=== PATIENT | male | born 1940 | race Caucasian/White ===

== ENCOUNTER 2020-02-27 20:23 | Inpatient (IN) | payer MEDICARE, OTHER ==
[~2020-02-27] VITALS: Ht 180.3 cm; Wt 102.6 kg
[2020-02-27] MEDS ORDERED: IBUPROFEN 800 MG (MOTRIN) TAB PO ONE (20:52)
[2020-02-27] MEDS ORDERED: ALBUTEROL/IPRATROP (COMBIVENT RESPIMAT) 4 GM INHALER ONE (20:52)
[2020-02-27] MEDS ORDERED: ACETAMINOPHEN 500 MG TAB (TYLENOL) ONE (20:52)
[2020-02-27] MEDS ORDERED: ADVAIR HFA 115/21 MCG INHALER 8 GM IH ONE (20:53)
[2020-02-27] MEDS ORDERED: dexAMETHasone 6 MG TAB (DECADRON) ONE (20:53)
[2020-02-27 21:17] LABS: ABG BASE EXCESS -0.3 MMOL/L (-2.5-2.5); ABG OXYGEN SATURATION 94 % (94-100); ABG PCO2 37 MMHG (35-45); ABG PH 7.42 (7.37-7.43); ABG PO2 85 MMHG (79-93); ABG TCO2 24.2 MMOL/L (21.0-31.0)
[2020-02-27 21:20] LABS: BASOPHILS % (AUTO) 1 % (0-10); EOSINOPHILS % (AUTO) 0 % (0-10); HEMATOCRIT 37 % (40-54); HEMOGLOBIN 12.4 g/dL (13.3-17.7); LYMPHOCYTES # (AUTO) 0.9 10^3/uL (1.0-4.0); LYMPHOCYTES % (AUTO) 15 % (12-44); MEAN CORPUSCULAR HEMOGLOBIN 35 pg (25-34); MEAN CORPUSCULAR HGB CONC 33 g/dL (32-36); MEAN CORPUSCULAR VOLUME 105 fL (80-99); MEAN PLATELET VOLUME 9.8 fL (9.0-12.2); MONOCYTES # (AUTO) 0.4 10^3/uL (0.0-1.0); MONOCYTES % (AUTO) 6 % (0-12); NEUTROPHILS # (AUTO) 4.5 10^3/uL (1.8-7.8); NEUTROPHILS % (AUTO) 77 % (42-75); PLATELET COUNT 89 10^3/uL (130-400); WHITE BLOOD COUNT 5.8 10^3/uL (4.3-11.0)
[2020-02-27 21:23] LABS: ALLENS TEST YES-POS; INSPIRED O2 5L; PATIENT TEMP 102.3; VENTILATOR NO
[2020-02-27 21:27] LABS: PROTHROMBIN TIME PATIENT 13.8 SEC (12.2-14.7)
[2020-02-27 21:32] LABS: ALBUMIN 4.1 GM/DL (3.2-4.5)
[2020-02-27 21:33] LABS: CHLORIDE 102 MMOL/L (98-107); POTASSIUM 3.9 MMOL/L (3.6-5.0); SODIUM 138 MMOL/L (135-145)
[2020-02-27 21:34] LABS: BILIRUBIN,URINE NEGATIVE (NEGATIVE); CLARITY,URINE CLEAR; COLOR,URINE YELLOW; GLUCOSE, URINE (UA) NEGATIVE (NEGATIVE); KETONES,URINE NEGATIVE (NEGATIVE); LEUKOCYTE ESTERASE ,URINE TRACE (NEGATIVE); NITRITE,URINE NEGATIVE (NEGATIVE); PH,URINE 7.5 (5-9); PROTEIN,URINE TRACE (NEGATIVE)
[2020-02-27 21:35] LABS: GLUCOSE 110 MG/DL (70-105); TOTAL PROTEIN 7.1 GM/DL (6.4-8.2)
[2020-02-27 21:36] LABS: CARBON DIOXIDE 23 MMOL/L (21-32)
[2020-02-27 21:37] LABS: BILIRUBIN,TOTAL 1.4 MG/DL (0.1-1.0); ERYTHROCYTE SEDIMENTATION RATE 17 MM/HR (0-30)
[2020-02-27 21:38] LABS: ALKALINE PHOSPHATASE 68 U/L (40-136)
[2020-02-27 21:39] LABS: BACTERIA,URINE TRACE /HPF; RBC,URINE RARE /HPF; SQUAMOUS EPITHELIAL CELL,UR RARE /HPF; WBC,URINE 0-2 /HPF
[2020-02-27 21:39] LABS: CREATININE SERUM 1.13 MG/DL (0.60-1.30); GFR ESTIMATED > 60
[2020-02-27 21:40] LABS: BUN/CREATININE RATIO 13
[2020-02-27 21:42] LABS: ALANINE AMINOTRANSFERASE 18 U/L (0-55); CREATINE KINASE 68 U/L (30-200); MAGNESIUM 1.8 MG/DL (1.6-2.4)
[2020-02-27 21:51] LABS: CREATINE KINASE MB 1.2 NG/ML (<6.6)
--- NOTE | 2020-02-27 21:54 | Diagnostic Imaging Report ---
INDICATION: Dyspnea. COMPARISON: None available. TECHNIQUE: Single frontal radiograph of the chest dated February 27, 2020. FINDINGS: The cardiac silhouette is within normal limits in size. No significant pulmonary vascular congestion. Bibasilar interstitial opacities are present. The upper lungs are clear. No significant pleural effusion. No pneumothorax. No acute osseous abnormality. Calcifications within the aortic arch. IMPRESSION: Mildly low lung volumes with associated bibasilar atelectasis and/or pneumonitis. Dictated by: Dictated on workstation # [id number]
[2020-02-27] MEDS ORDERED: cefTRIAXone FOR IV USE 1,000 MG in WATER (STERILE) FOR INJECTION 10 ML IV ONE (22:00)
[2020-02-27] MEDS ORDERED: AZITHROMYCIN INJECTION 500 MG in NS (IVPB) 250 ML IV ONE (22:00)
--- NOTE | 2020-02-27 22:01 | ED Respiratory ---
General Chief Complaint: Respiratory Problems Stated Complaint: SOB Source: patient History of Present Illness Date Seen by Provider: Feb 27, 2020 Time Seen by Provider: 20:49 Initial Comments PT ARRIVES VIA POV PT HAS BEEN TRAVELING ALL OVER IN MOTOR HOME--PT IS FROM [place], HAS BEEN DOWN TO [place], [place] THIS PAST WEEK VISITING FAMILY PT STATES HE BEGAN FEELING SICK A COUPLE OF DAYS AGO HAS HAD SUBJECTIVE FEVER C/O SHORTNESS OF BREATH C/O NON-PRODUCTIVE COUGH C/O WEAKNESS NO GI SYMPTOMS HAS NOT TAKEN ANYTHING FOR SYMPTOMS PT HAS COPD BUT DOES NOT REQUIRE HOME O2, HAS NOT USED INHALERS OR NEBULIZER STATES HE HAD PNEUMONIA IN MAY AND WAS HOSPITALIZED FOR 6 DAYS IN [place]--STATES HE LOST HIS TASTE AND SMELL THEN AND IT NEVER CAME BACK. STATES HE HAS LOST 25 LBS SINCE THEN PT QUIT SMOKING 1 PPD IN 2001 PT HAS HISTORY OF ATRIAL FIBRILLATION--S/P CARDIOVERSION, AND IS ON ELIQUIS Allergies and Home Medications Allergies Coded Allergies: Penicillins (Verified Allergy, Unknown, 02/27/20) Review of Systems Review of Systems Constitutional: see HPI, fever, malaise, weakness Past Adljjhw-Ezavap-Dlmybz Hx Patient Social History Recent Foreign Travel: No Contact w/Someone Who Travel: No Physical Exam Capillary Refill : Height: '" Weight: lbs. oz. kg; BMI Method: Focused Exam Lactate Level 02/27/20 20:55: Lactic Acid Level 1.52 Lactic Acid Level Laboratory Tests Test 02/27/20 20:55 Lactic Acid Level 1.52 MMOL/L (0.50-2.00) Progress/Results/Core Measures Suspected Sepsis SIRS Temperature: Pulse: Respiratory Rate: Laboratory Tests 02/27/20 20:55: White Blood Count 5.8 Blood Pressure / Mean: 02/27/20 20:55: Lactic Acid Level 1.52 Laboratory Tests 02/27/20 20:55: Creatinine 1.13, INR Comment 1.0, Platelet Count 89L, Total Bilirubin 1.4H Results/Orders Lab Results Laboratory Tests Test 02/27/20 20:55 02/27/20 21:10 02/27/20 21:18 02/27/20 21:20 Range/Units White Blood Count 5.8 4.3-11.0 10^3/uL Red Blood Count 3.58 L 4.30-5.52 10^6/uL Hemoglobin 12.4 L 13.3-17.7 g/dL Hematocrit 37 L 40-54 % Mean Corpuscular Volume 105 H 80-99 fL Mean Corpuscular Hemoglobin 35 H 25-34 pg Mean Corpuscular Hemoglobin Concent 33 32-36 g/dL Red Cell Distribution Width 14.2 10.0-14.5 % Platelet Count 89 L 130-400 10^3/uL Mean Platelet Volume 9.8 9.0-12.2 fL Immature Granulocyte % (Auto) 1 % Neutrophils (%) (Auto) 77 H 42-75 % Lymphocytes (%) (Auto) 15 12-44 % Monocytes (%) (Auto) 6 0-12 % Eosinophils (%) (Auto) 0 0-10 % Basophils (%) (Auto) 1 0-10 % Neutrophils # (Auto) 4.5 1.8-7.8 10^3/uL Lymphocytes # (Auto) 0.9 L 1.0-4.0 10^3/uL Monocytes # (Auto) 0.4 0.0-1.0 10^3/uL Eosinophils # (Auto) 0.0 0.0-0.3 10^3/uL Basophils # (Auto) 0.0 0.0-0.1 10^3/uL Immature Granulocyte # (Auto) 0.1 0.0-0.1 10^3/uL Erythrocyte Sedimentation Rate 17 0-30 MM/HR Prothrombin Time 13.8 12.2-14.7 SEC INR Comment 1.0 0.8-1.4 Activated Partial Thromboplast Time 36 H 24-35 SEC Sodium Level 138 135-145 MMOL/L Potassium Level 3.9 3.6-5.0 MMOL/L Chloride Level 102 98-107 MMOL/L Carbon Dioxide Level 23 21-32 MMOL/L Anion Gap 13 5-14 MMOL/L Blood Urea Nitrogen 15 7-18 MG/DL Creatinine 1.13 0.60-1.30 MG/DL Estimat Glomerular Filtration Rate > 60 BUN/Creatinine Ratio 13 Glucose Level 110 H 70-105 MG/DL Lactic Acid Level 1.52 0.50-2.00 MMOL/L Calcium Level 9.0 8.5-10.1 MG/DL Corrected Calcium 8.9 8.5-10.1 MG/DL Magnesium Level 1.8 1.6-2.4 MG/DL Total Bilirubin 1.4 H 0.1-1.0 MG/DL Aspartate Amino Transf (AST/SGOT) 23 5-34 U/L Alanine Aminotransferase (ALT/SGPT) 18 0-55 U/L Alkaline Phosphatase 68 40-136 U/L Lactate Dehydrogenase 175 125-220 U/L Total Creatine Kinase 68 30-200 U/L Creatine Kinase MB 1.2 <6.6 NG/ML Myoglobin 71.4 10.0-92.0 NG/ML Troponin I < 0.028 <0.028 NG/ML C-Reactive Protein High Sensitivity 2.22 H 0.00-0.50 MG/DL B-Type Natriuretic Peptide 114.0 H <100.0 PG/ML Total Protein 7.1 6.4-8.2 GM/DL Albumin 4.1 3.2-4.5 GM/DL Procalcitonin 0.17 H <0.10 NG/ML Blood Gas Puncture Site R RAD Blood Gas Patient Temperature 102.3 Arterial Blood pH 7.42 7.37-7.43 Arterial Blood Partial Pressure CO2 37 35-45 MMHG Arterial Blood Partial Pressure O2 85 79-93 MMHG Arterial Blood HCO3 23 23-27 MMOL/L Arterial Blood Total CO2 24.2 21.0-31.0 MMOL/L Arterial Blood Oxygen Saturation 94 94-100 % Arterial Blood Base Excess -0.3 -2.5-2.5 MMOL/L Lucian Test YES-POS Blood Gas Ventilator Setting NO Blood Gas Inspired Oxygen 5L Urine Color YELLOW Urine Clarity CLEAR Urine pH 7.5 5-9 Urine Specific [place] 1.010 L 1.016-1.022 Urine Protein TRACE H NEGATIVE Urine Glucose (UA) NEGATIVE NEGATIVE Urine Ketones NEGATIVE NEGATIVE Urine Nitrite NEGATIVE NEGATIVE Urine Bilirubin NEGATIVE NEGATIVE Urine Urobilinogen 1.0 < = 1.0 MG/DL Urine Leukocyte Esterase TRACE H NEGATIVE Urine RBC (Auto) NEGATIVE NEGATIVE Urine RBC RARE /HPF Urine WBC 0-2 /HPF Urine Squamous Epithelial Cells RARE /HPF Urine Crystals NONE /LPF Urine Bacteria TRACE /HPF Urine Casts NONE /LPF Urine Mucus NEGATIVE /LPF Urine Culture Indicated CULTURE PENDING Coronavirus 2019 ([facility]) Negative Negative Micro Results Microbiology 02/27/20 Influenza Types A,B Antigen (NUVIA) - Final, Complete My Orders Orders - SARAHLOLY K DO Ibuprofen Tablet (Motrin Tablet) (02/27/20 20:52) Acetaminophen Tablet (Tylenol Tablet) (02/27/20 20:52) Albuterol/Ipratropium Inhaler (Combivent (02/27/20 20:52) Dexamethasone Tablet (Decadron Tablet) (02/27/20 20:53) Fluticasone/Salmeterol 115/21 (Advair Hf (02/27/20 20:53) Dexamethasone Injection (Decadron Inje (02/27/20 20:55) Arterial Blood Gas (02/27/20 21:12) Ed Iv/Invasive Line Start (02/27/20 21:12) Ekg Tracing (02/27/20 21:12) O2 (02/27/20 21:12) Monitor-Rhythm Ecg Trace Only (02/27/20 21:12) BNP (02/27/20 21:12) Cbc With Automated Diff (02/27/20 21:12) Comprehensive Metabolic Panel (02/27/20 21:12) Creatine Kinase (02/27/20 21:12) Creatine Kinase Mb (02/27/20 21:12) Hs C Reactive Protein (02/27/20 21:12) Lactic Acid Analyzer (02/27/20 21:12) Magnesium (02/27/20 21:12) Procalcitonin (Pct) (02/27/20 21:12) Protime With Inr (02/27/20 21:12) Partial Thromboplastin Time (02/27/20 21:12) Ua Culture If Indicated (02/27/20 21:12) Blood Culture (02/27/20 21:12) Influenza A And B Antigens (02/27/20 21:12) Erythrocyte Sedimentation Rate (02/27/20 21:12) Myoglobin Serum (02/27/20 21:12) Troponin I (02/27/20 21:12) Chest 1 View, Ap/Pa Only (02/27/20 21:12) LDH (02/27/20 21:12) Covid 19 Inhouse Test (02/27/20 21:12) Urine Culture (02/27/20 21:12) Ed Iv/Invasive Line Start (02/27/20 21:12) Ed Iv/Invasive Line Start (02/27/20 21:12) Vital Signs Adult Sepsis Patie Q15M (02/27/20 21:12) O2 (02/27/20 21:12) Remove Rings In Anticipation O (02/27/20 21:12) Ceftriaxone For Iv Use (Rocephin For I (02/27/20 22:00) Azithromycin Injection (Zithromax Inject (02/27/20 22:00) Coronavirus Sars-Cov-2 So 2019 (02/27/20 22:01) Ct Angio Chest W (02/27/20 22:08) Iohexol Injection (Omnipaque 350 Mg/Ml 1 (02/27/20 23:00) Ns (Ivpb) (Sodium Chloride 0.9% Ivpb Bag (02/27/20 23:00) Vital Signs/I&O Capillary Refill : Progress Note : Progress Note PLACED IN ISOLATION ROOM PPE WORN AT ALL TIMES COVID-19 TESTING PERFORMED PT HYPOXIC ON ARRIVAL--PLACED ON O2 AT 5L/NC AND O2 SATS UP TO MID 90'S TEMP 102.4 ON ARRIVAL--GIVEN TYLENOL AND MOTRIN WITH DECREASED IN TEMP GIVEN IV FLUIDS HEART RATE DOWN AT TIME OF ADMIT WELL NO DETERIORATION IN PT'S CONDITION DURING ER STAY Diagnostic Imaging Comments CXR--per radiologist report at 2200 FINDINGS: The cardiac silhouette is within normal limits in size. No significant pulmonary vascular congestion. Bibasilar interstitial opacities are present. The upper lungs are clear. No significant pleural effusion. No pneumothorax. No acute osseous abnormality. Calcifications within the aortic arch. IMPRESSION: Mildly low lung volumes with associated bibasilar atelectasis and/or pneumonitis. Reviewed: Reviewed by Me Departure Impression Primary Impression: Person under investigation for COVID-19 Additional Impressions: Acute respiratory failure with hypoxia Pneumonia Sepsis History of atrial fibrillation Departure-Patient Inst. Referrals: NO,LOCAL PHYSICIAN (PCP/Family) Primary Care Physician LOLY SMITH DO Feb 27, 2020 22:01
[2020-02-27] MEDS ORDERED: NS 100 ML (IVPB) BAG IV ONE (23:00)
[2020-02-27] MEDS ORDERED: IOHEXOL 350 MG/ML 150 ML (OMNIPAQUE 350) VIAL IV ONE (23:00)
[2020-02-27] MEDS ORDERED: APIXABAN 5 MG (ELIQUIS) TABLET PO ONE (23:45)
--- NOTE | 2020-02-28 00:30 | NUR ---
GABRIELA SMITH V admitted to room 510-1, with an admitting diagnosis of covid pui, sepsis, acute respiratory failure, pneumonia, on 02/27/20 from ed via wc, accompanied by staff.GABRIELA SMITH V introduced to surroundings, call light, bed controls, phone, TV, temperature control, lights, meal times, smoking policy, visitor policy, side rail policy, bathrooms and showers. Patient Rights given to patient in the handbook. GABRIELA SMITH V verbalizes understanding that [facility] is not responsible for the loss or damage to any personal effects or valuables that are kept in the patients possession during their hospitalization. Patient denies any questions or concerns about his admission or illness at this time. Patient and/or family were informed about the Rapid Response Team and its purpose.
[2020-02-28] MEDS ORDERED: ACETAMINOPHEN 500 MG TAB (TYLENOL) PO PRN (00:45)
[2020-02-28] MEDS ORDERED: IBUPROFEN 800 MG (MOTRIN) TAB PO PRN (00:45)
[2020-02-28] MEDS: 1/2 NS IV SOLUTION 1,000 ML IV SCH ×3 (01:15→16:57)
--- NOTE | 2020-02-28 02:38 | NUR ---
PT REFUSED FLU VAC STATED HE TOOK IT AROUND 02/02/20
[2020-02-28] MEDS ORDERED: OMEP20CA18 PO (03:14)
[2020-02-28] MEDS ORDERED: potassium (03:14)
[2020-02-28] MEDS ORDERED: APIX5TAB PO (03:14)
[2020-02-28] MEDS ORDERED: ROSU20TA32 PO (03:14)
[2020-02-28] MEDS ORDERED: FURO40TA4 PO (03:14)
[2020-02-28] MEDS ORDERED: FERROUS SULFATE (03:14)
[2020-02-28] MEDS ORDERED: CELE-63 PO (03:14)
[2020-02-28] MEDS ORDERED: ALLO100T PO (03:14)
[2020-02-28] MEDS ORDERED: LISI-556 PO (03:14)
[2020-02-28] MEDS ORDERED: amiodarone (03:19)
[2020-02-28] MEDS ORDERED: metoprolol (03:19)
[2020-02-28] MEDS ORDERED: FLUT1BLS3 IH (03:19)
[2020-02-28] MEDS ORDERED: SUCR1TAB PO (03:27)
[2020-02-28 04:25] LABS: BASOPHILS # (AUTO) 0.1 10^3/uL (0.0-0.1); BASOPHILS % (AUTO) 1 % (0-10); EOSINOPHILS % (AUTO) 0 % (0-10); HEMATOCRIT 35 % (40-54); HEMOGLOBIN 11.6 g/dL (13.3-17.7); LYMPHOCYTES # (AUTO) 0.7 10^3/uL (1.0-4.0); LYMPHOCYTES % (AUTO) 7 % (12-44); MEAN CORPUSCULAR HEMOGLOBIN 35 pg (25-34); MEAN CORPUSCULAR HGB CONC 34 g/dL (32-36); MEAN CORPUSCULAR VOLUME 106 fL (80-99); MONOCYTES # (AUTO) 0.1 10^3/uL (0.0-1.0); MONOCYTES % (AUTO) 1 % (0-12); NEUTROPHILS # (AUTO) 8.9 10^3/uL (1.8-7.8); NEUTROPHILS % (AUTO) 89 % (42-75); PLATELET COUNT 84 10^3/uL (130-400)
[2020-02-28 04:32] LABS: ALBUMIN 3.9 GM/DL (3.2-4.5); POTASSIUM 3.9 MMOL/L (3.6-5.0)
[2020-02-28 04:33] LABS: CALCIUM 8.6 MG/DL (8.5-10.1)
[2020-02-28 04:35] LABS: TOTAL PROTEIN 6.7 GM/DL (6.4-8.2)
[2020-02-28 04:36] LABS: BILIRUBIN,TOTAL 1.1 MG/DL (0.1-1.0)
[2020-02-28 04:38] LABS: CREATININE SERUM 1.29 MG/DL (0.60-1.30)
[2020-02-28] MEDS ORDERED: IPRATROPIUM INHALER (ATROVENT) 12.9 GM INH SCH (06:00)
--- NOTE | 2020-02-28 06:42 | Diagnostic Imaging Report ---
PROCEDURE: CT angiography of the chest with contrast. TECHNIQUE: Multiple contiguous axial images were obtained through the chest after uneventful bolus administration of intravenous contrast. 3D reconstructed CTA MIP acquisitions were also performed. Auto Exposure Controls were utilized during the CT exam to meet ALARA standards for radiation dose reduction. INDICATION: Dyspnea. COMPARISON: Chest radiograph 02/27/2020. FINDINGS: Examination is limited by respiratory motion. No large or central pulmonary emboli. Moderate atherosclerotic calcifications. Normal caliber thoracic aorta. Normal heart size. No pericardial effusion. Mediastinal lymphadenopathy including periaortic lymph nodes measuring up to 1.5 cm. Consolidation in the lung bases, right greater than left. No pleural effusion or pneumothorax. No endobronchial lesions. Superior endplate compression deformity of T12 results in approximately 10% height loss, appears chronic. No acute osseous findings. Cholelithiasis without secondary CT findings of cholecystitis. IMPRESSION: 1. No large central pulmonary emboli. 2. Bibasilar consolidation, right greater than left, suspicious for pneumonitis. 3. Mediastinal lymphadenopathy is indeterminate but may be reactive. 4. Cholelithiasis. No significant change from preliminary interpretation. Dictated by: Dictated on workstation # [id number]
[2020-02-28] MEDS ORDERED: ACETAMINOPHEN 325 MG TABLET PO PRN (07:45)
[2020-02-28] MEDS ORDERED: MELATONIN 3 MG TABLET PO PRN (07:45)
[2020-02-28] MEDS ORDERED: ANTACID SUSP 30 ML UDC (MYLANTA) PO PRN (07:45)
[2020-02-28] MEDS ORDERED: ONDANSETRON 4 MG/2 ML (SDV) Z0FRAN IV PRN (07:45)
[2020-02-28] MEDS ORDERED: ONDANSETRON 4 MG (ZOFRAN) ORAL DISSOLVE TAB PO PRN (07:45)
[2020-02-28] MEDS ORDERED: BISACODYL 10 MG SUPP (DULCOLAX) PR PRN (07:45)
[2020-02-28] MEDS ORDERED: polyethylene glycoL POWDER 17 GM (MIRALAX) PACK PO PRN (07:45)
[2020-02-28] MEDS: RT-ALBUTEROL INHALER HFA (VENTOLIN HFA) 18 GM IH SCH ×5 (08:15→22:19)
[2020-02-28] MEDS: AZITHROMYCIN 250 MG TAB (ZITHROMAX) PO SCH (08:15)
[2020-02-28] MEDS: cefTRIAXone FOR IV USE 2,000 MG in WATER (STERILE) FOR INJECTION 20 ML IV SCH (08:16)
[2020-02-28] MEDS ORDERED: POTA-51 PO (08:32)
[2020-02-28] MEDS ORDERED: MTP100TCR PO (08:32)
[2020-02-28] MEDS ORDERED: FERR325T18 PO (08:37)
[2020-02-28] MEDS ORDERED: APIXABAN 5 MG (ELIQUIS) TABLET PO SCH (09:00)
[2020-02-28] MEDS: DOCUSATE SODIUM 100 MG (COLACE) CAP PO SCH ×2 (11:04→20:40)
[2020-02-28] MEDS: SENNOSIDES 8.6 MG (SENOKOT) TAB PO SCH ×2 (11:04→20:40)
[2020-02-28] MEDS: inSUlin ASPART (NovoLOG) 1 UNIT/0.01 ML (CHARGE PER UNIT) SC SCH ×3 (12:02→20:40)
--- NOTE | 2020-02-28 14:24 | History & Physical-Hospitalist ---
History of Present Illness HPI/Chief Complaint Dilip Lyman is an 79-year-old male with past medical history of hypertension, hyperlipidemia, COPD, atrial fibrillation on Eliquis, GERD, gout, who presented with shortness of breath. He reports over the past couple days he has had trouble breathing. He also reports a cough. He reports subjective fevers. He has been weak. He denies any chest pain. He denies any abdominal pain. He denies any nausea or vomiting. He denies any diarrhea. He denies any dysuria. He has not had any known COVID exposures. He has been traveling with his in an RV and they are camped in the local area. Source: patient Exam Limitations: no limitations Date Seen 02/28/20 Time Seen by a Provider: 11:00 Attending Physician Jose Spangler MD PCP No,Local Physician Referring Physician Date of Admission Feb 27, 2020 at 22:05 Home Medications & Allergies Home Medications Reviewed patient Home Medication Reconciliation performed by pharmacy medication reconciliations customer support technician and/or nursing. Patients Allergies have been reviewed. Allergies Allergies Coded Allergies Penicillins (Verified Allergy, Unknown, 02/27/20) Past Ylpytip-Nmvcvo-Cqvsog Hx Past Med/Social Hx: Reviewed Nursing Past Med/Soc Hx Patient Social History Recent Foreign Travel: No Contact w/other who traveled: No Immunizations Up To Date Date of Influenza Vaccine: Feb 02, 2020 Family History "female trouble" 19 MOTHER (pt states his mother when he was in his teen years-pt unsure of what exactly caused this) FH: throat cancer 19 FATHER Throat Review of Systems Constitutional: fever, weakness EENTM: no symptoms reported Respiratory: cough, short of breath Cardiovascular: no symptoms reported Gastrointestinal: no symptoms reported Genitourinary: no symptoms reported Musculoskeletal: no symptoms reported Skin: no symptoms reported Psychiatric/Neurological: No Symptoms Reported Physical Exam Physical Exam Vital Signs Vital Signs - First Documented Capillary Refill : Less Than 3 Seconds Height, Weight, BMI Height: '" Weight: lbs. oz. kg; 31.53 BMI Method: General Appearance: No Apparent Distress, Obese HEENT: PERRL/EOMI, Pharynx Normal Neck: Normal Inspection, Supple Respiratory: Lungs Clear, Normal Breath Sounds, No Respiratory Distress Cardiovascular: Regular Rate, Rhythm, No Edema, No Murmur Gastrointestinal: Normal Bowel Sounds, Non Tender, Soft Extremity: Normal Inspection, Non Tender, No Pedal Edema Neurologic/Psychiatric: Alert, Oriented x3, No Motor/Sensory Deficits, Normal Mood/Affect Skin: Normal Color, Warm/Dry Results Results/Procedures Labs Laboratory Tests 02/27/20 20:55 02/28/20 03:45 Patient resulted labs reviewed. Imaging: Reviewed Imaging Report Assessment/Plan Admission Diagnosis Sepsis due to pneumonia Admission Status: Inpatient Order (span 2 midnights) Reason for Inpatient Admission: PNA requiring IV antibiotics Respiratory failure requiring supplemental oxygen Assessment and Plan Sepsis due to pneumonia Acute respiratory failure with hypoxia Person under investigation for COVID-19 COPD with acute exacerbation Chest xray with bibasilar consolidations Procalcitonin trended up Rapid COVID negative, PCR pending Started on Rocephin and Azithromycin Continue IV fluids Supplemental oxygen as needed, only 1 L at time of my exam MAT protocol Started on Decadron, transition to Prednisone Continue home inhalers Chronic atrial fibrillation Continue Eliquis and Metoprolol HTN Continue Lisinopril and Metoprolol HLD Continue statin GERD Continue PPI Gout Continue Allopurinol DVT Prophylaxis: already receiving therapeutic anticoagulation Diagnosis/Problems Diagnosis/Problems (1) Sepsis due to pneumonia Status: Acute (2) Acute respiratory failure with hypoxia Status: Acute (3) Person under investigation for COVID-19 Status: Acute (4) COPD (chronic obstructive pulmonary disease) Status: Acute Qualifiers: COPD type: COPD with acute exacerbation Qualified Codes: J44.1 - Chronic obstructive pulmonary disease with (acute) exacerbation (5) HTN (hypertension) Status: Chronic Qualifiers: Hypertension type: essential hypertension Qualified Codes: I10 - Essential (primary) hypertension (6) HLD (hyperlipidemia) Status: Chronic (7) GERD (gastroesophageal reflux disease) Status: Chronic (8) Gout Status: Chronic (9) Chronic a-fib Status: Chronic Clinical Quality Measures DVT/VTE Risk/Contraindication: Risk Factor Score Per Nursin RFS Level Per Nursing on Admit: 4+=Very High JOSE SPANGLER MD Feb 28, 2020 14:24
[2020-02-28] MEDS: ROSUVASTATIN 20 MG (CRESTOR) TABLET PO SCH (20:40)
[2020-02-28] MEDS: PANTOPRAZOLE 20 MG TABLET (PROTONIX) PO SCH (20:40)
[2020-02-28] MEDS: APIXABAN 2.5 MG (ELIQUIS) TABLET PO SCH (20:40)
[2020-02-28] MEDS ORDERED: AZITHROMYCIN 500 MG/NS 250 ML IVPB IV SCH ×2 (21:00)
[2020-02-28] MEDS ORDERED: cefTRIAXone 1,000 MG/SWFI 10 ML IV PUSH IV SCH ×2 (21:00)
[2020-02-29] MEDS: RT-ALBUTEROL INHALER HFA (VENTOLIN HFA) 18 GM IH SCH ×6 (03:38→23:21)
[2020-02-29 04:07] LABS: CHLORIDE 103 MMOL/L (98-107); POTASSIUM 3.9 MMOL/L (3.6-5.0)
[2020-02-29 04:08] LABS: SODIUM 136 MMOL/L (135-145)
[2020-02-29 04:09] LABS: CALCIUM 8.8 MG/DL (8.5-10.1); GLUCOSE 143 MG/DL (70-105)
[2020-02-29 04:11] LABS: CARBON DIOXIDE 22 MMOL/L (21-32)
[2020-02-29 04:13] LABS: CREATININE SERUM 0.91 MG/DL (0.60-1.30); GFR ESTIMATED > 60
[2020-02-29 04:14] LABS: BUN/CREATININE RATIO 20
[2020-02-29] MEDS: inSUlin ASPART (NovoLOG) 1 UNIT/0.01 ML (CHARGE PER UNIT) SC SCH (06:05)
[2020-02-29] MEDS: predniSONE 20 MG TAB PO SCH (06:29)
[2020-02-29] MEDS ORDERED: dexAMETHasone 6 MG TAB (DECADRON) PO SCH (07:00)
[2020-02-29] MEDS: cefTRIAXone FOR IV USE 2,000 MG in WATER (STERILE) FOR INJECTION 20 ML IV SCH (07:48)
[2020-02-29] MEDS: ALLOPURINOL 100 MG (ZYLOPRIM) TAB PO SCH (07:49)
[2020-02-29] MEDS: AZITHROMYCIN 250 MG TAB (ZITHROMAX) PO SCH (07:49)
[2020-02-29] MEDS: PANTOPRAZOLE 20 MG TABLET (PROTONIX) PO SCH ×2 (07:49→20:43)
[2020-02-29] MEDS: DOCUSATE SODIUM 100 MG (COLACE) CAP PO SCH ×2 (07:49→20:43)
[2020-02-29] MEDS: APIXABAN 2.5 MG (ELIQUIS) TABLET PO SCH (07:50)
[2020-02-29] MEDS: lisINopril 5 MG (PRINIVIL) TABLET PO SCH (07:50)
[2020-02-29] MEDS: SENNOSIDES 8.6 MG (SENOKOT) TAB PO SCH ×2 (07:50→20:43)
[2020-02-29] MEDS: FUROSEMIDE 40 MG (LASIX) TAB PO SCH (07:50)
[2020-02-29] MEDS ORDERED: NON-FORMULARY MEDICATION 1 EA EA (Fluticasone/Umeclidin/Vilanter (Trelegy Ellipta 100-62.5 IH SCH (09:00)
[2020-02-29] MEDS ORDERED: meTOprolol SUCCINATE 100 MG (TOPROL XL) TAB PO SCH (09:00)
--- NOTE | 2020-02-29 11:05 | Progress Note - Hospitalist ---
Subjective HPI/CC On Admission Date Seen by Provider: Feb 29, 2020 Time Seen by Provider: 09:55 Dilip Lyman is an 79-year-old male with past medical history of hypertension, hyperlipidemia, COPD, atrial fibrillation on Eliquis, GERD, gout, who presented with shortness of breath. He reports over the past couple days he has had trou ble breathing. He also reports a cough. He reports subjective fevers. He has been weak. He denies any chest pain. He denies any abdominal pain. He denies any nausea or vomiting. He denies any diarrhea. He denies any dysuria. He has not had any known COVID exposures. He has been traveling with his in an RV and they are camped in the local area. Subjective/Events-last exam he reports feeling better today. He is still getting short of breath with exertion. He still has a cough. He has been eating and drinking. He has no other complaints or concerns. Focused Exam Lactate Level 02/27/20 20:55: Lactic Acid Level 1.52 Objective Exam Vital Signs Vital Signs Date Time Temp Pulse Resp B/P (MAP) Pulse Ox O2 Delivery O2 Flow Rate FiO2 02/29/20 10:39 96 Nasal Cannula 1.00 02/29/20 08:00 36.6 82 20 146/75 Capillary Refill : Less Than 3 Seconds General Appearance: No Apparent Distress, Obese Respiratory: No Respiratory Distress, Wheezing Cardiovascular: Regular Rate, Rhythm, No Edema, No Murmur Gastrointestinal: Normal Bowel Sounds, Non Tender, Soft Extremity: Normal Inspection, Non Tender, No Pedal Edema Neurologic/Psychiatric: Alert, Oriented x3, No Motor/Sensory Deficits, Normal Mood/Affect Skin: Normal Color, Warm/Dry Results/Procedures Lab Laboratory Tests 02/29/20 03:15 Patient resulted labs reviewed. Imaging: Reviewed Imaging Report Assessment/Plan Assessment and Plan Assess & Plan/Chief Complaint Pneumonia Acute respiratory failure with hypoxia Person under investigation for COVID-19 COPD with acute exacerbation continue Rocephin and Azithromycin stop IV fluids Supplemental oxygen as needed, only 0.5 L at time of my exam MAT protocol continue Prednisone Continue home inhalers Chronic atrial fibrillation Continue Eliquis and Metoprolol HTN Continue Lisinopril and Metoprolol HLD Continue statin GERD Continue PPI Gout Continue Allopurinol DVT Prophylaxis: already receiving therapeutic anticoagulation sepsis, resolved Diagnosis/Problems Diagnosis/Problems (1) Sepsis due to pneumonia Status: Acute (2) Acute respiratory failure with hypoxia Status: Acute (3) COPD (chronic obstructive pulmonary disease) Status: Acute Qualifiers: COPD type: COPD with acute exacerbation Qualified Codes: J44.1 - Chronic obstructive pulmonary disease with (acute) exacerbation (4) HTN (hypertension) Status: Chronic Qualifiers: Hypertension type: essential hypertension Qualified Codes: I10 - Essential (primary) hypertension (5) HLD (hyperlipidemia) Status: Chronic (6) GERD (gastroesophageal reflux disease) Status: Chronic (7) Gout Status: Chronic (8) Chronic a-fib Status: Chronic (9) Person under investigation for COVID-19 Status: Resolved Resolution Date/Time: 02/29/20 @ 11:04 Clinical Quality Measures DVT/VTE Risk/Contraindication: Risk Factor Score Per Nursin RFS Level Per Nursing on Admit: 4+=Very High JOSE SPANGLER MD Feb 29, 2020 11:05
--- NOTE | 2020-02-29 12:00 | NUR ---
PATIENT ARRIVED VIA WHEELCHAIR TO ROOM ON ROOM AIR. SATURATIONS RA 92% AT THIS TIME WITH NO COMPLAINTS.
--- NOTE | 2020-02-29 14:35 | NUR ---
PT SPO2 ON RA WHILE RESTING WAS 94%. AFTER 2 MINUTES OF WALKING PT SPO2 DROPPED TO 83%. PT WAS PLACED ON 2LNC AT THIS TIME AND SPO2 STAYED ABOVE 94% FOR THE REMAINDER OF THE WALK STUDY. Addendum: 02/29/20 at 1435 by RUTH GIPSON RT Amended: Links added.
[2020-02-29] MEDS: ROSUVASTATIN 20 MG (CRESTOR) TABLET PO SCH (20:43)
[2020-02-29] MEDS: APIXABAN 5 MG (ELIQUIS) TABLET PO SCH (20:43)
[2020-03-01] MEDS ORDERED: meTOprolol 5 MG/5 ML (LOPRESSOR) VIAL ONE (01:09)
[2020-03-01] MEDS ORDERED: meTOprolol 5 MG/5 ML (LOPRESSOR) VIAL IV ONE ×2 (01:15→04:00)
--- NOTE | 2020-03-01 02:25 | NUR ---
0032 - Notified by weatherization field technician that pt has sustained HR >120 for several minutes. Checked on the pt, pt is in the bathroom 0037 - pt back in bed, vital signs taken BP = 148/87; HR = 115. Monitored pt HR for 10 minutes, HR is jumping all over, between 90 to as high as 138. 0055 - EKG Done, atrial fibrillation. 0103 - Notified Dr. Mistry of pt elevated HR. Received orders for Metroprolol IV 5mg once. 0115 - Vital signs: T=36.6; HR = 112; RR = 18; O2 Sat = 95% 2L; BP = 142/84 0117 - Metoprolol given. Monitor pt HR. 0200 - Notified Dr. Mistry that pt HR is still jumping between 85 - 105 but nothing greater than 110. Received additional orders for Metroprolol 5mg IV [id number] x2 doses PRN for HR >120 and to notify if it continues after 2 doses. Will monitor pt and follow orders.
[2020-03-01] MEDS: RT-ALBUTEROL INHALER HFA (VENTOLIN HFA) 18 GM IH SCH ×2 (03:29→08:23)
[2020-03-01 05:19] LABS: CHLORIDE 105 MMOL/L (98-107); POTASSIUM 3.4 MMOL/L (3.6-5.0); SODIUM 139 MMOL/L (135-145)
[2020-03-01 05:20] LABS: CALCIUM 8.7 MG/DL (8.5-10.1); GLUCOSE 101 MG/DL (70-105)
[2020-03-01 05:22] LABS: CARBON DIOXIDE 24 MMOL/L (21-32)
[2020-03-01 05:24] LABS: CREATININE SERUM 0.94 MG/DL (0.60-1.30); GFR ESTIMATED > 60
[2020-03-01 05:25] LABS: BUN/CREATININE RATIO 17
[2020-03-01] MEDS: predniSONE 20 MG TAB PO SCH (06:21)
--- NOTE | 2020-03-01 06:50 | NUR ---
0353 - [employer] service technician notified this RN that pt HR is running between 120 - 130 for several minutes 0412 - Metroprolol 5mg IV given. 2190 - 0650 - Monitored pt. HR was running between 69 - 114. No additional medication given.
[2020-03-01] MEDS: ALLOPURINOL 100 MG (ZYLOPRIM) TAB PO SCH (08:44)
[2020-03-01] MEDS: FUROSEMIDE 40 MG (LASIX) TAB PO SCH (08:44)
[2020-03-01] MEDS: PANTOPRAZOLE 20 MG TABLET (PROTONIX) PO SCH (08:44)
[2020-03-01] MEDS: AZITHROMYCIN 250 MG TAB (ZITHROMAX) PO SCH (08:44)
[2020-03-01] MEDS: DOCUSATE SODIUM 100 MG (COLACE) CAP PO SCH (08:45)
[2020-03-01] MEDS: APIXABAN 5 MG (ELIQUIS) TABLET PO SCH (08:47)
[2020-03-01] MEDS: SENNOSIDES 8.6 MG (SENOKOT) TAB PO SCH (08:47)
[2020-03-01] MEDS: lisINopril 5 MG (PRINIVIL) TABLET PO SCH (08:47)
[2020-03-01] MEDS ORDERED: meTOprolol SUCCINATE 100 MG (TOPROL XL) TAB PO SCH (09:00)
[2020-03-01] MEDS ORDERED: CEFDINIR 300 MG (OMNICEF) CAP PO SCH (09:00)
[2020-03-01] MEDS ORDERED: CEFD300C3 PO ×2 (09:54→10:39)
--- NOTE | 2020-03-01 10:00 | Discharge Inst-Simple/Standard ---
Discharge Inst-Standard Patient Instructions/Follow Up Plan of Care/Instructions/FU: Please continue to take your medications as written. Please follow up with your primary care doctor to follow up this hospital stay. Activity as Tolerated: Yes Discharge Diet: No Restrictions Return to The Hospital For: Chest pain, shortness of breath, palpiations, fever, confusion, weakness, if you feel you are getting worse. LINWOOD LE MD Mar 01, 2020 10:00
--- NOTE | 2020-03-01 10:36 | Discharge Summary ---
Diagnosis/Chief Complaint Date of Admission Feb 27, 2020 at 22:05 Date of Discharge Discharge Date: Mar 01, 2020 Admission Diagnosis Sepsis due to pneumonia Primary Care No,Local Physician Discharge Diagnosis (1) Sepsis due to pneumonia Status: Acute (2) Acute respiratory failure with hypoxia Status: Acute (3) COPD (chronic obstructive pulmonary disease) Status: Acute (4) HTN (hypertension) Status: Chronic (5) HLD (hyperlipidemia) Status: Chronic (6) GERD (gastroesophageal reflux disease) Status: Chronic (7) Gout Status: Chronic (8) Chronic a-fib Status: Chronic (9) Person under investigation for COVID-19 Status: Resolved (10) RESPIRATORY FAILURE, UNSP, UNSP W HYPOXIA OR HYPERCAPNIA Discharge Summary Discharge Physical Exam Allergies: Coded Allergies: Penicillins (Verified Allergy, Unknown, 02/27/20) Vitals & I&Os Vital Signs Date Time Temp Pulse Resp B/P (MAP) Pulse Ox O2 Delivery O2 Flow Rate FiO2 03/01/20 08:51 Nasal Cannula 2.00 03/01/20 08:32 100 03/01/20 08:00 36.2 20 139/73 94 General Appearance: No Apparent Distress, Chronically ill Cardiovascular: Regular Rate, Rhythm, No Murmur Gastrointestinal: Normal Bowel Sounds, Soft Extremity: Normal Capillary Refill, Non Tender, No Calf Tenderness Neurologic/Psychiatric: Alert, Oriented x3 Hospital Course Labs (last 24 hrs) Laboratory Tests 02/29/20 10:50: Glucometer 140H 03/01/20 04:51: Sodium Level 139, Potassium Level 3.4L, Chloride Level 105, Carbon Dioxide Level 24, Anion Gap 10, Blood Urea Nitrogen 16, Creatinine 0.94, Estimat Glomerular Filtration Rate > 60, BUN/Creatinine Ratio 17, Glucose Level 101, Calcium Level 8.7 Microbiology 02/27/20 Influenza Types A,B Antigen (NUVIA) - Final, Complete 02/27/20 Urine Culture - Preliminary, Resulted Proteus mirabilis 02/27/20 Blood Culture - Preliminary, Resulted No growth Patient resulted labs reviewed. Pending Labs Laboratory Tests 03/01/20 04:51: Sodium Level 139, Potassium Level 3.4, Chloride Level 105, Carbon Dioxide Level 24, Anion Gap 10, Blood Urea Nitrogen 16, Creatinine 0.94, Estimat Glomerular Filtration Rate > 60, BUN/Creatinine Ratio 17, Glucose Level 101, Calcium Level 8.7 Imaging: Reviewed Imaging Report Discharge Home Medications: Active Scripts Active Cefdinir 300 Mg Capsule 300 Mg PO BID Reported Ferrous Sulfate 325 Mg Tablet 325 Mg PO BID Potassium Chloride 20 Meq Tablet.er 20 Meq PO HS Metoprolol Succinate 100 Mg Tab.er.24h 100 Mg PO DAILY Trelegy Ellipta 100-62.5-25 (Fluticasone/Umeclidin/Vilanter) 1 Each Blst.w.dev 1 Each IH DAILY Rosuvastatin Calcium 20 Mg Tablet 20 Mg PO HS Omeprazole 20 Mg Capsule.dr 20 Mg PO BID Lisinopril 5 Mg Tablet 5 Mg PO DAILY Furosemide 40 Mg Tablet 40 Mg PO DAILY Eliquis (Apixaban) 5 Mg Tablet 5 Mg PO HS Allopurinol 100 Mg Tablet 100 Mg PO DAILY Instructions to patient/family Please see electronic discharge instructions given to patient. Clinical Quality Measures DVT/VTE Risk/Contraindication: Risk Factor Score Per Nursin RFS Level Per Nursing on Admit: 4+=Very High Problem Qualifiers (1) COPD (chronic obstructive pulmonary disease): COPD type: COPD with acute exacerbation Qualified Codes: J44.1 - Chronic obstructive pulmonary disease with (acute) exacerbation (2) HTN (hypertension): Hypertension type: essential hypertension Qualified Codes: I10 - Essential (primary) hypertension LINWOOD LE MD Mar 01, 2020 10:36
--- NOTE | 2020-03-01 11:22 | NUR ---
I WAS UNABLE TO COMPLETE THIS PATIENT'S MED REC DUE TO THEM BEING DISCHARGED.
--- NOTE | 2020-03-01 11:25 | NUR ---
DISCHARGE PLANNING: Patient is to discharge today to home, which is in [place]. He he has qualified for oxygen on exertion at 2 L. I have spoken with our DME and they suggest contacting a provider that has nationwide coverage. [facility] both have a nationwide network. I have sent the O2 order, qualification study along with H&P to [facility]. They report that they to provide O2 for him it would be [employer]. Patient does not want to travel with tanks back to [place]. I have spoken with Dr. Ken and to get a repeat study. If he still continues to qualify I will send request to [facility].
[2020-03-01 12:29] VITALS: BP 136/90
--- NOTE | 2020-03-01 13:07 | NUR ---
DISCHARGE PLANNING: Patient a asked for a repeat O2 study. He was ambulated by [facility] and on this date did not qualify for Oxygen. He is very happy that he does not have to mess with that now.
--- NOTE | 2020-03-01 13:42 | NUR ---
PATIENT WALKED ON RA O2 SAT RANGED FROM 90% TO 94%; HR RANGED FROM 89 TO 114; PATIENT DID GET SOB AND STOPPED BUT RECOVERED QUICKLY. PATIENT DID NOT DESAT BELOW 90%.
--- NOTE | 2020-03-01 14:30 | NUR ---
GABRIELA SMITH V demonstrates understanding of discharge instructions and accurately returns instructions upon questioning. Copy of Post-Discharge Instructions and Medication Discharge Instructions given to pt. GABRIELA SMITH V is able to manage continuing needs after discharge. Patients belongings returned to pt. Skin dry and intact; no breakdown noted. Patient discharged from 414-1 on at 1430. GABRIELA SMITH V left floor via wc, accompanied by staff.
[2020-03-01 14:35] VITALS: BP 136/90
== END 2020-03-01 14:30 | disposition home or self-care (01) | DRG 871 ==
LOC: ER 20:25 → CSD 22:05 → 4TH 02-29 11:56
PROVIDERS: ADMIT Internal Medicine; ATTEND Internal Medicine
DX: A41.9 Sepsis, unspecified organism (principal); J18.9 Pneumonia, unspecified organism; J96.01 Acute respiratory failure with hypoxia; J44.1 Chronic obstructive pulmonary disease with (acute) exacerbation; I48.20 Chronic atrial fibrillation, unspecified; Z79.01 Long term (current) use of anticoagulants; Z20.828 Contact with and (suspected) exposure to other viral communicable diseases; I10 Essential (primary) hypertension; E78.5 Hyperlipidemia, unspecified; K21.9 Gastro-esophageal reflux disease without esophagitis; M10.9 Gout, unspecified; Z87.891 Personal history of nicotine dependence
CPT/HCPCS: 36415; 71045; 71275; 80048; 80053; 81000; 82550; 82553; 82607; 82728; 82746; 82805; 82962; 83036; 83540; 83605; 83615; 83735; 83874; 83880; 84145; 84484; 85025; 85379; 85610; 85652; 85730; 86141; 87040; 87077; 87088; 87186; 87635; 87804; 93005; 93041; 93306; 94640; 94761